=== PATIENT | male | born 1950 | race Caucasian/White ===

== ENCOUNTER 2021-12-08 14:09 | Inpatient (IN) | payer MEDICARE ==
[~2021-12-08] VITALS: Ht 175.3 cm; Wt 75.0 kg
[2021-12-08] MEDS ORDERED: ondansetron/PF 4mg/2ml inj IV ONE (15:25)
[2021-12-08] MEDS ORDERED: normal saline 1000ml 1,000 ML IV ONE ×2 (15:25→16:35)
[2021-12-08 15:44] LABS: BASOPHILS % (AUTO) 0.4 % (0-1); EOSINOPHILS % (AUTO) 0 % (0-6); HEMATOCRIT 50.4 % (42.0-52.0); HEMOGLOBIN 17.6 g/dl (14.0-17.9); LYMPHOCYTES # (AUTO) 0.5 X10'3 (1.1-4.8); LYMPHOCYTES % (AUTO) 3.9 % (21-51); MEAN CORPUSCULAR HEMOGLOBIN 33.5 PG (27.0-31.0); MEAN CORPUSCULAR HGB CONC 34.8 g/dL (33.0-36.5); MEAN CORPUSCULAR VOLUME 96.2 FL (78-98); MONOCYTES # (AUTO) 0.4 X10'3 (0-0.9); MONOCYTES % (AUTO) 3.3 % (2-12); NEUTROPHILS # (AUTO) 12.3 X10'3 (1.8-7.7); NEUTROPHILS % (AUTO) 92.4 % (42-75); PLATELET COUNT 148 X10'3 (140-440); RED BLOOD COUNT 5.24 X10'6 (4.70-6.10); RED CELL DISTRIBUTION WIDTH 12.6 % (11.5-14.5); WHITE BLOOD COUNT 13.3 X10'3 (4.5-11.0)
[2021-12-08 15:54] LABS: D-DIMER 1.91 MG/L FEU (0-0.50)
[2021-12-08 15:58] LABS: ALANINE AMINOTRANSFERASE 33 U/L (12-78); ALBUMIN 3.5 G/DL (3.4-5.0); ALBUMIN/GLOBULIN RATIO 0.8 (1.1-1.5); ALKALINE PHOSPHATASE 52 IU/L (46-116); ANION GAP 7 (8-16); ASPARTATE AMINO TRANSFERASE 39 U/L (10-37); BILIRUBIN,TOTAL 1.1 MG/DL (0.1-1.0); BLOOD UREA NITROGEN 25 MG/DL (7-18); BUN/CREATININE RATIO 16.9 (5.4-32.0); CALCIUM 8.9 MG/DL (8.5-10.1); CHLORIDE 87 MMOL/L (99-107); CREATININE 1.48 MG/DL (0.60-1.10); GLUCOSE 111 MG/DL (70-104); POTASSIUM 4.5 MMOL/L (3.5-5.1); SODIUM 122 MMOL/L (135-145); TOTAL CARBON DIOXIDE 28.5 MMOL/L (24-32); TOTAL PROTEIN 7.9 G/DL (6.4-8.2); eGFR 47 ML/MIN
[2021-12-08] MEDS ORDERED: diltiazem 5mg/ml 5ml inj. IV ONE (16:35)
[2021-12-08] MEDS ORDERED: diltiazem 30mg tablet PO ONE (16:35)
[2021-12-08 16:45] LABS: TOTAL CELLS COUNTED 100
[2021-12-08 16:46] LABS: PLATELET ESTIMATE NORMAL
[2021-12-08 16:47] LABS: HYPERSEGMENTED NEUTROPHILS FEW; LARGE PLATELETS FEW
[2021-12-08] MEDS ORDERED: CefTRIAXone 2gm/D5W 50ml BAG 50 ML IV ONE (17:05)
[2021-12-08] MEDS ORDERED: azithromycin 250mg tablet PO ONE (17:05)
[2021-12-08] MEDS ORDERED: mag hydrox/Alum hydrox/simeth 30ml oral suspension PO PRN (17:30)
[2021-12-08] MEDS ORDERED: magnesium 4gm in 100ml NS 100 ML IV PRN (17:30)
[2021-12-08] MEDS ORDERED: acetaminophen 325mg tablet PO PRN (17:30)
[2021-12-08] MEDS ORDERED: magnesium 2GM in 50ml NS 50 ML IV PRN (17:30)
[2021-12-08] MEDS ORDERED: potassium Cl 20 mEq SR tablet PO PRN ×2 (17:30)
[2021-12-08] MEDS ORDERED: magnesium Cl slow-release 64mg tablet PO PRN (17:30)
[2021-12-08] MEDS ORDERED: ondansetron/PF 4mg/2ml inj IV PRN (17:30)
[2021-12-08] MEDS ORDERED: magnesium hydroxide 30ml (MOM) UD suspension PO PRN (17:30)
[2021-12-08] MEDS ORDERED: potassium CL 10mEq/100ml bag 100 ML IV PRN (17:30)
[2021-12-08 17:48] LABS: MAGNESIUM 2.4 MG/DL (1.5-2.4)
[2021-12-08] MEDS ORDERED: iohexol 350MG/ML 100ml bottle IV ONE (19:00)
[2021-12-08] MEDS: normal saline 1000ml 1,000 ML IV SCH (19:04)
[2021-12-08] MEDS: K and/or MAG REPLACEMENT MC SCH (20:00)
[2021-12-08] MEDS: docusate sod 100mg capsule PO SCH (22:24)
[2021-12-08] MEDS: diltiazem 30mg tablet PO SCH (22:24)
[2021-12-08] MEDS: DEXAMETHASONE 6 MG TABLET PO SCH (22:25)
[2021-12-09] MEDS ORDERED: NO HOME MEDS (01:25)
[2021-12-09] MEDS: normal saline 1000ml 1,000 ML IV SCH ×3 (05:14→17:48)
[2021-12-09] MEDS: diltiazem 30mg tablet PO SCH ×4 (05:14→21:10)
[2021-12-09 05:31] LABS: BASOPHILS % (AUTO) 0.5 % (0-1); EOSINOPHILS % (AUTO) 0 % (0-6); HEMATOCRIT 44.7 % (42.0-52.0); HEMOGLOBIN 15.3 g/dl (14.0-17.9); LYMPHOCYTES # (AUTO) 0.2 X10'3 (1.1-4.8); LYMPHOCYTES % (AUTO) 2.5 % (21-51); MEAN CORPUSCULAR HEMOGLOBIN 33.3 PG (27.0-31.0); MEAN CORPUSCULAR HGB CONC 34.3 g/dL (33.0-36.5); MEAN CORPUSCULAR VOLUME 97.2 FL (78-98); MEAN PLATELET VOLUME 10.3 FL (7.4-10.4); MONOCYTES # (AUTO) 0.2 X10'3 (0-0.9); MONOCYTES % (AUTO) 2.1 % (2-12); NEUTROPHILS # (AUTO) 9.3 X10'3 (1.8-7.7); NEUTROPHILS % (AUTO) 94.9 % (42-75); PLATELET COUNT 134 X10'3 (140-440); RED CELL DISTRIBUTION WIDTH 12.6 % (11.5-14.5); WHITE BLOOD COUNT 9.8 X10'3 (4.5-11.0)
--- NOTE | 2021-12-09 05:34 | NUR ---
pt spo2 drops to 87% when sleeping on 3L. increased oxygen to 5 L and spo2 91-92%.
[2021-12-09 05:38] LABS: ALBUMIN 2.9 G/DL (3.4-5.0); ANION GAP 7 (8-16); BLOOD UREA NITROGEN 25 MG/DL (7-18); BUN/CREATININE RATIO 16.3 (5.4-32.0); CALCIUM 8.5 MG/DL (8.5-10.1); CHLORIDE 96 MMOL/L (99-107); CREATININE 1.53 MG/DL (0.60-1.10); GLUCOSE 125 MG/DL (70-104); POTASSIUM 4.6 MMOL/L (3.5-5.1); SODIUM 128 MMOL/L (135-145); TOTAL CARBON DIOXIDE 25.4 MMOL/L (24-32); eGFR 45 ML/MIN
--- NOTE | 2021-12-09 06:36 | NUR ---
Report received from URIEL Oshea.
[2021-12-09] MEDS: K and/or MAG REPLACEMENT MC SCH ×2 (07:02→20:00)
[2021-12-09] MEDS: DEXAMETHASONE 6 MG TABLET PO SCH ×2 (08:54→21:09)
[2021-12-09] MEDS: docusate sod 100mg capsule PO SCH ×2 (08:54→21:09)
[2021-12-09] MEDS: aspirin 81mg tab.chew PO SCH (08:54)
[2021-12-09] MEDS: enoxaparin 40mg/0.4ml syringe SUBCUT SCH (08:55)
[2021-12-09 10:50] VITALS: BP 103/67
[2021-12-09 15:55] VITALS: BP 105/51
[2021-12-09 18:00] VITALS: BP 102/54
--- NOTE | 2021-12-09 18:22 | NUR ---
Problems reprioritized. Patient report given, questions answered & plan of care reviewed with ALLISON TREVINO.
[2021-12-09 22:00] VITALS: BP 108/72
[2021-12-10 02:00] VITALS: BP 102/62
[2021-12-10] MEDS: diltiazem 30mg tablet PO SCH ×4 (02:00→20:56)
[2021-12-10 06:00] VITALS: BP 110/62
--- NOTE | 2021-12-10 06:11 | NUR ---
Per pharmacy the hospital don,t have the 30 mg diltiazem hence pt missed 0200am dose.
--- NOTE | 2021-12-10 06:14 | NUR ---
Problems reprioritized. Patient report given, questions answered & plan of care reviewed with apurva..
[2021-12-10] MEDS: K and/or MAG REPLACEMENT MC SCH ×2 (08:00→20:00)
[2021-12-10 08:05] LABS: BASOPHILS % (AUTO) 0.1 % (0-1); EOSINOPHILS % (AUTO) 0 % (0-6); HEMATOCRIT 41.1 % (42.0-52.0); HEMOGLOBIN 14.2 g/dl (14.0-17.9); LYMPHOCYTES # (AUTO) 0.6 X10'3 (1.1-4.8); LYMPHOCYTES % (AUTO) 4.6 % (21-51); MEAN CORPUSCULAR HEMOGLOBIN 33.6 PG (27.0-31.0); MEAN CORPUSCULAR HGB CONC 34.6 g/dL (33.0-36.5); MEAN CORPUSCULAR VOLUME 97.1 FL (78-98); MEAN PLATELET VOLUME 10.9 FL (7.4-10.4); MONOCYTES # (AUTO) 0.5 X10'3 (0-0.9); MONOCYTES % (AUTO) 3.8 % (2-12); NEUTROPHILS # (AUTO) 11.6 X10'3 (1.8-7.7); NEUTROPHILS % (AUTO) 91.5 % (42-75); PLATELET COUNT 177 X10'3 (140-440); RED BLOOD COUNT 4.23 X10'6 (4.70-6.10); RED CELL DISTRIBUTION WIDTH 12.8 % (11.5-14.5); WHITE BLOOD COUNT 12.7 X10'3 (4.5-11.0)
[2021-12-10 08:18] LABS: GLUCOSE 134 MG/DL (70-104); SODIUM 134 MMOL/L (135-145)
[2021-12-10 08:19] LABS: ALBUMIN 2.6 G/DL (3.4-5.0); ANION GAP 8 (8-16); BLOOD UREA NITROGEN 32 MG/DL (7-18); BUN/CREATININE RATIO 26.7 (5.4-32.0); CALCIUM 7.7 MG/DL (8.5-10.1); CHLORIDE 102 MMOL/L (99-107); POTASSIUM 4.1 MMOL/L (3.5-5.1); TOTAL CARBON DIOXIDE 23.6 MMOL/L (24-32); eGFR 60 ML/MIN
[2021-12-10] MEDS: docusate sod 100mg capsule PO SCH ×2 (09:13→20:56)
[2021-12-10] MEDS: aspirin 81mg tab.chew PO SCH (09:13)
[2021-12-10] MEDS: DEXAMETHASONE 6 MG TABLET PO SCH ×2 (09:13→20:56)
[2021-12-10] MEDS: enoxaparin 40mg/0.4ml syringe SUBCUT SCH (09:14)
--- NOTE | 2021-12-10 09:30 | NUR ---
Ambulated pt to bathroom and back with 5LNC - pt tolerated well.
[2021-12-10 10:00] VITALS: BP 112/63
[2021-12-10 14:00] VITALS: BP 111/72
[2021-12-10 18:00] VITALS: BP 123/68
[2021-12-10 18:55] LABS: C-REACTIVE PROTEIN 7.57 MG/DL (0.0-0.5)
--- NOTE | 2021-12-10 18:59 | NUR ---
Problems reprioritized. Patient report given, questions answered & plan of care reviewed with URIEL Soliz.
--- NOTE | 2021-12-10 19:31 | NUR ---
Patient in room [facility]. I have received report from CORIN TREVINO and had the opportunity to ask questions and assume patient care.
[2021-12-10 20:35] LABS: D-DIMER 2.48 MG/L FEU (0-0.50)
[2021-12-10 22:00] VITALS: BP 114/75
[2021-12-11 02:00] VITALS: BP 124/74
[2021-12-11] MEDS: diltiazem 30mg tablet PO SCH ×3 (03:10→14:44)
--- NOTE | 2021-12-11 06:10 | NUR ---
Problems reprioritized. Patient report given, questions answered & plan of care reviewed with JAMES TREIVNO.
--- NOTE | 2021-12-11 06:30 | NUR ---
received report from justa pedroza
[2021-12-11 06:55] LABS: ALBUMIN 2.5 G/DL (3.4-5.0); ANION GAP 10 (8-16); BLOOD UREA NITROGEN 27 MG/DL (7-18); BUN/CREATININE RATIO 24.3 (5.4-32.0); CHLORIDE 103 MMOL/L (99-107); CREATININE 1.11 MG/DL (0.60-1.10); GLUCOSE 137 MG/DL (70-104); SODIUM 134 MMOL/L (135-145); TOTAL CARBON DIOXIDE 20.6 MMOL/L (24-32); eGFR 65 ML/MIN
[2021-12-11 06:56] LABS: BASOPHILS % (AUTO) 0.1 % (0-1); EOSINOPHILS % (AUTO) 0 % (0-6); HEMOGLOBIN 13.7 g/dl (14.0-17.9); WHITE BLOOD COUNT 15.2 X10'3 (4.5-11.0)
[2021-12-11 06:59] LABS: HEMATOCRIT 39.2 % (42.0-52.0); LYMPHOCYTES # (AUTO) 0.5 X10'3 (1.1-4.8); MEAN CORPUSCULAR HEMOGLOBIN 33.9 PG (27.0-31.0); MONOCYTES # (AUTO) 0.7 X10'3 (0-0.9); MONOCYTES % (AUTO) 4.7 % (2-12); NEUTROPHILS % (AUTO) 92.2 % (42-75); PLATELET COUNT 219 X10'3 (140-440); RED BLOOD COUNT 4.04 X10'6 (4.70-6.10); RED CELL DISTRIBUTION WIDTH 13.1 % (11.5-14.5)
[2021-12-11] MEDS: K and/or MAG REPLACEMENT MC SCH (08:00)
[2021-12-11] MEDS: aspirin 81mg tab.chew PO SCH (08:25)
[2021-12-11] MEDS: docusate sod 100mg capsule PO SCH (08:25)
[2021-12-11] MEDS: DEXAMETHASONE 6 MG TABLET PO SCH (08:25)
[2021-12-11] MEDS: enoxaparin 40mg/0.4ml syringe SUBCUT SCH (08:27)
[2021-12-11 09:09] LABS: C-REACTIVE PROTEIN 3.53 MG/DL (0.0-0.5)
[2021-12-11 09:26] LABS: D-DIMER 2.74 MG/L FEU (0-0.50)
[2021-12-11 10:00] VITALS: BP 119/71
[2021-12-11] MEDS ORDERED: ASPI-845 PO (14:16)
[2021-12-11] MEDS ORDERED: DILT180C89 PO (14:16)
[2021-12-11] MEDS ORDERED: DEC4T PO (14:16)
--- NOTE | 2021-12-11 16:00 | NUR ---
NURSING STAFF WALKED PT 100FT W/OUT 02 AND PT 02 SAT 90-92% ON ROOM AIR
--- NOTE | 2021-12-11 16:46 | NUR ---
PT D/C W/INSTRUCTIONS, UNDERSTANDING OF INSTRUCTIONS AND W/ALL BELONGINGS IN WHEELCHAIR TO PRIVATE VEHICLE TO GO HOME AND F/U W/PCP
== END 2021-12-11 16:00 | disposition home or self-care (01) | DRG 177 ==
LOC: ER 14:10 → ED HOLD 17:29 → ORTHO 4S 12-09 11:00
PROVIDERS: ADMIT Family Medicine; ATTEND Family Medicine
PROC: B32T1ZZ Computerized Tomography (CT Scan) of Left Pulmonary Artery using Low Osmolar Contrast (ICD-10-PCS; principal; 2021-12-08)
PROC: B3201ZZ Computerized Tomography (CT Scan) of Thoracic Aorta using Low Osmolar Contrast (ICD-10-PCS; 2021-12-08)
PROC: B32S1ZZ Computerized Tomography (CT Scan) of Right Pulmonary Artery using Low Osmolar Contrast (ICD-10-PCS; 2021-12-08)
DX: U07.1 COVID-19 (principal); N17.0 Acute kidney failure with tubular necrosis; J96.01 Acute respiratory failure with hypoxia; E87.1 Hypo-osmolality and hyponatremia; I48.91 Unspecified atrial fibrillation
CPT/HCPCS: 36415; 71045; 71275; 80048; 80053; 83735; 84145; 84484; 85007; 85025; 85379; 86140; 87081; 93005; 93306; 99285; G0378; J0696; J1650; J2405; J3490; J7030; J8540; Q9967

== ENCOUNTER 2024-01-08 15:26 | Emergency (ER) | payer MEDICARE ==
[~2024-01-08] VITALS: Ht 172.7 cm; Wt 82.7 kg
[~2024-01-08 15:26] MED LIST: DILT180C89 PO
[2024-01-08 15:57] VITALS: TEMP 98.2
[2024-01-08 16:04] LABS: BASOPHILS # (AUTO) 0.1 X10'3 (0-0.2); BASOPHILS % (AUTO) 0.9 % (0-1); EOSINOPHILS # (AUTO) 0.1 X10'3 (0-0.9); EOSINOPHILS % (AUTO) 0.8 % (0-6); HEMATOCRIT 47.4 % (42.0-52.0); HEMOGLOBIN 16.5 g/dl (14.0-17.9); LYMPHOCYTES # (AUTO) 2.6 X10'3 (1.1-4.8); LYMPHOCYTES % (AUTO) 23.9 % (21-51); MEAN CORPUSCULAR HEMOGLOBIN 33.7 PG (27.0-31.0); MEAN CORPUSCULAR HGB CONC 34.9 g/dL (33.0-36.5); MEAN CORPUSCULAR VOLUME 96.6 FL (78-98); MEAN PLATELET VOLUME 8.7 FL (7.4-10.4); MONOCYTES # (AUTO) 0.6 X10'3 (0-0.9); MONOCYTES % (AUTO) 5.4 % (2-12); NEUTROPHILS # (AUTO) 7.4 X10'3 (1.8-7.7); PLATELET COUNT 170 X10'3 (140-440); RED BLOOD COUNT 4.91 X10'6 (4.70-6.10); RED CELL DISTRIBUTION WIDTH 13.1 % (11.5-14.5); WHITE BLOOD COUNT 10.8 X10'3 (4.5-11.0)
[2024-01-08 16:28] LABS: ALBUMIN 3.8 G/DL (3.4-5.0); ALKALINE PHOSPHATASE 102 IU/L (46-116); ANION GAP 5 (8-16); BILIRUBIN,TOTAL 0.4 MG/DL (0.1-1.0); BLOOD UREA NITROGEN 24 MG/DL (7-18); BUN/CREATININE RATIO 21.2 (10.0-20.0); CALCIUM 7.8 MG/DL (8.5-10.1); CHLORIDE 105 MMOL/L (99-107); CREATININE 1.13 MG/DL (0.60-1.10); PRO BRAIN NATRIURETIC PEPTIDE 187 PG/ML (0-125); SODIUM 143 MMOL/L (135-145); TOTAL CARBON DIOXIDE 33.5 MMOL/L (24-32); eCRCL 55 ML/MIN; eGFR 63 ML/MIN
[2024-01-08 17:51] VITALS: BP 148/96; PULSE 107; RESP 16; O2SAT 98
[2024-01-08 18:02] LABS: ASPARTATE AMINO TRANSFERASE 24 U/L (10-37)
[2024-01-08 18:03] LABS: GLUCOSE 141 MG/DL (70-104); POTASSIUM 3.8 MMOL/L (3.5-5.1); TOTAL PROTEIN 7.7 G/DL (6.4-8.2)
[2024-01-08 18:04] LABS: ALANINE AMINOTRANSFERASE 40 U/L (12-78)
== END 2024-01-08 18:38 | disposition home or self-care (01) ==
LOC: ER 15:27
DX: R07.89 Other chest pain (principal); R05.9 Cough, unspecified; Z79.899 Other long term (current) drug therapy
CPT/HCPCS: 36415; 71045; 80053; 83880; 84484; 85025; 93005; 99285

== ENCOUNTER 2024-04-22 10:24 | Day surgery (SDC) | payer MEDICARE ==
[2024-04-18 12:58] LABS: BASOPHILS # (AUTO) 0.1 X10'3 (0-0.2); BASOPHILS % (AUTO) 0.5 % (0-1); EOSINOPHILS # (AUTO) 0.1 X10'3 (0-0.9); EOSINOPHILS % (AUTO) 1.1 % (0-6); HEMATOCRIT 46.7 % (42.0-52.0); HEMOGLOBIN 16.1 g/dl (14.0-17.9); LYMPHOCYTES # (AUTO) 3.1 X10'3 (1.1-4.8); LYMPHOCYTES % (AUTO) 29.8 % (21-51); MEAN CORPUSCULAR HEMOGLOBIN 33.4 PG (27.0-31.0); MEAN CORPUSCULAR HGB CONC 34.5 g/dL (33.0-36.5); MEAN CORPUSCULAR VOLUME 96.8 FL (78-98); MEAN PLATELET VOLUME 8.3 FL (7.4-10.4); MONOCYTES # (AUTO) 0.7 X10'3 (0-0.9); MONOCYTES % (AUTO) 6.7 % (2-12); NEUTROPHILS # (AUTO) 6.5 X10'3 (1.8-7.7); NEUTROPHILS % (AUTO) 61.9 % (42-75); PLATELET COUNT 177 X10'3 (140-440); RED BLOOD COUNT 4.83 X10'6 (4.70-6.10); RED CELL DISTRIBUTION WIDTH 13.2 % (11.5-14.5); WHITE BLOOD COUNT 10.5 X10'3 (4.5-11.0)
[2024-04-18 13:10] LABS: APTT 29 SECONDS (22-32); INR 1.1 INR; PROTHROMBIN TIME 11.4 SECONDS (9.0-12.0)
[2024-04-18 13:16] LABS: ALBUMIN 3.7 G/DL (3.4-5.0); ANION GAP 8 (8-16); BLOOD UREA NITROGEN 20 MG/DL (7-18); BUN/CREATININE RATIO 17.4 (10.0-20.0); CHLORIDE 102 MMOL/L (99-107); CREATININE 1.15 MG/DL (0.60-1.10); GLUCOSE 85 MG/DL (70-104); POTASSIUM 4.2 MMOL/L (3.5-5.1); SODIUM 136 MMOL/L (135-145); eGFR 62 ML/MIN
[~2024-04-22] VITALS: Ht 172.7 cm; Wt 82.1 kg
[2024-04-22] VITALS (11 sets, daily range): BP systolic 100–159; BP diastolic 63–102; PULSE 58–87; RESP 10–12; TEMP 98.2; O2SAT 93–99
[2024-04-22] MEDS: normal saline 1000ml 1,000 ML IV SCH (10:50)
[2024-04-22] MEDS ORDERED: APIX5TAB3 PO (10:55)
[2024-04-22] MEDS ORDERED: SOTA80TA PO (10:55)
[2024-04-22] MEDS: fentaNYL/PF 50MCG/1 ML 2ML syringe IV ONE (14:16)
[2024-04-22] MEDS: MIDAZolam 1mg/ml 10ml vial IV ONE (14:16)
== END 2024-04-22 15:25 | disposition home or self-care (01) ==
LOC: SSTAY O 10:24
PROVIDERS: ATTEND Student in an Organized Health Care Education/Training Program
DX: I48.91 Unspecified atrial fibrillation (principal); I51.7 Cardiomegaly; Z79.01 Long term (current) use of anticoagulants; Z79.899 Other long term (current) drug therapy; Z88.6 Allergy status to analgesic agent
CPT/HCPCS: 36415; 80048; 85025; 85610; 85730; 92960; 93005; J2250; J3010; J7030